=== PATIENT | female | born 1955 | race African-American/Black ===

== ENCOUNTER 2020-12-01 08:00 | Inpatient (IN) | payer OTHER ==
[2020-11-28 09:26] VITALS: BMI 33.6
[~2020-12-01 08:00] MED LIST: MIDAZOLAM HCL 2 MG/2 ML SINGLE DOSE VIAL ONE; PROPOFOL 20 ML ONE; ROCURONIUM BROMIDE 50 MG/5 ML SYRINGE ONE; fentaNYL CITRATE 250 MCG/5 ML VIAL ONE
[2020-12-02] MEDS ORDERED: GENTAMICIN SO4 80 MG/2 ML VIAL ONE (07:10)
[2020-12-02] MEDS ORDERED: LIDOCAINE 1%/EPI 1:100000 (20 ML MULTI DOSE VIAL) ONE (07:10)
[2020-12-02] MEDS ORDERED: THROMBIN (BOVINE) 20,000 UNIT VIAL TP ONE (07:10)
[2020-12-02] MEDS ORDERED: ACETAMINOPHEN INJECTION 100 ML IVPB ONE (07:15)
[2020-12-02] MEDS ORDERED: fentaNYL CITRATE 250 MCG/5 ML VIAL ONE (07:18)
[2020-12-02] MEDS ORDERED: PROPOFOL 20 ML ONE ×7 (07:18→08:00)
[2020-12-02] MEDS ORDERED: LIDOCAINE HCL/PF 2% SDV 5ML VIAL ONE (07:18)
[2020-12-02] MEDS ORDERED: DEXAMETHASONE SOD PHOSPHATE 4 MG/1 ML VIAL ONE ×2 (07:18→09:09)
[2020-12-02] MEDS ORDERED: SODIUM CHLORIDE 0.9% P/F 10 ML VIAL IJ ONE ×4 (07:18→10:38)
[2020-12-02] MEDS ORDERED: SUCCINYLCHOLINE CHLORIDE 200 MG/10 ML SYRINGE ONE (07:18)
[2020-12-02] MEDS ORDERED: ROCURONIUM BROMIDE 50 MG/5 ML SYRINGE ONE ×2 (07:18→09:16)
[2020-12-02] MEDS ORDERED: ceFAZolin SODIUM 1 GM VIAL ONE ×2 (07:18→13:47)
[2020-12-02] MEDS ORDERED: ONDANSETRON 4 MG/2 ML VIAL ONE ×2 (07:18→09:09)
[2020-12-02] MEDS ORDERED: MIDAZOLAM HCL 2 MG/2 ML SINGLE DOSE VIAL ONE ×3 (07:19→09:45)
[2020-12-02] MEDS ORDERED: SCOPOLAMINE HYDROBROMIDE 1 PATCH PATCH.TD72 ONE (07:55)
[2020-12-02] MEDS ORDERED: VANCOMYCIN 1,000 MG VIAL (RESTRICTED TO ID ONLY) ONE (07:58)
[2020-12-02] MEDS ORDERED: BACITRACIN 15 GM TUBE TOPICAL OINTMENT ONE (07:59)
[2020-12-02] MEDS ORDERED: VANCOMYCIN 1,000 MG VIAL (RESTRICTED TO ID ONLY) IVPB ONE (08:24)
[2020-12-02] MEDS ORDERED: ceFAZolin SODIUM 1 GM VIAL IVPB ONE (08:34)
[2020-12-02] MEDS ORDERED: BUPIVACAINE LIPOSOME/PF (EXPAREL) 266 MG/20 ML VIAL ONE (08:48)
[2020-12-02] MEDS ORDERED: HYDROmorphone HCl 2 MG/ML VIAL ONE ×2 (08:56→12:46)
[2020-12-02] MEDS ORDERED: THROMBIN (BOVINE) 5,000 UNIT VIAL TP ONE (08:59)
[2020-12-02] MEDS ORDERED: TRANEXAMIC ACID 1000 MG/10 ML VIAL ONE (09:32)
[2020-12-02] MEDS ORDERED: NEOSTIGMINE METHYLSULFATE 0.5 MG/1 ML - 10 ML MDV ONE (09:36)
[2020-12-02] MEDS ORDERED: GLYCOPYRROLATE 0.2 MG/1 ML VIAL ONE (09:37)
[2020-12-02] MEDS ORDERED: BUPIVACAINE LIPOSOME/PF (EXPAREL) 266 MG/20 ML VIAL NR ONE (09:48)
[2020-12-02] MEDS ORDERED: BUPIVACAINE HCL/PF 0.5% (5 MG/ML) 30 ML VIAL IJ ONE (09:48)
[2020-12-02] MEDS ORDERED: ePHEDrine SULFATE 50 MG/1 ML AMPULE ONE (10:09)
[2020-12-02] MEDS ORDERED: FLUMAZENIL 0.5 MG/5 ML VIAL ONE (11:31)
[2020-12-02] MEDS ORDERED: ONDANSETRON 4 MG/2 ML VIAL IVPUSH PRN ×2 (11:43→13:25)
[2020-12-02] MEDS ORDERED: HYDROmorphone HCl 2 MG/ML VIAL IVPUSH PRN (11:44)
[2020-12-02] MEDS ORDERED: LACTATED RINGERS SOLUTION 1,000 ML IV SCH (11:45)
[2020-12-02] MEDS: HYDROmorphone HCl 2 MG/ML VIAL IVPUSH PRN ×2 (12:50→13:55)
[2020-12-02] MEDS ORDERED: HYDROmorphone HCl 2 MG/ML VIAL SQ PRN (13:25)
[2020-12-02] MEDS ORDERED: oxyCODONE HCL 5 MG TABLET PO PRN ×2 (13:25)
[2020-12-02] MEDS: LACTATED RINGERS SOLUTION 1,000 ML IV SCH ×2 (13:55→22:48)
[2020-12-02] MEDS: CEFAZOLIN 2 GM/D5W 2 GM/50 ML ML IVPB SCH ×2 (15:25→20:42)
[2020-12-02] MEDS: CYCLOBENZAPRINE HCL 10 MG TABLET (FP) PO SCH ×2 (15:25→21:34)
[2020-12-02] MEDS: CARVEDILOL 12.5 MG TABLET (FP) PO SCH (21:33)
[2020-12-02] MEDS: diazePAM 5 MG TABLET PO SCH (21:33)
[2020-12-03] MEDS: CEFAZOLIN 2 GM/D5W 2 GM/50 ML ML IVPB SCH (01:31)
[2020-12-03] MEDS ORDERED: oxyCODONE HCL 5 MG TABLET PO PRN (03:25)
[2020-12-03] MEDS: ACETAMINOPHEN 1000 MG/100 ML VIAL (NON FORMULARY) IVPB PRN ×2 (03:43→12:46)
[2020-12-03] MEDS: CYCLOBENZAPRINE HCL 10 MG TABLET (FP) PO SCH ×3 (05:14→21:39)
[2020-12-03] MEDS: HYDROmorphone HCl 2 MG/ML VIAL SQ PRN (09:17)
[2020-12-03 09:33] LABS: HEMOGLOBIN 7.9 GM/dL (10.7-15.3); MCH 28.4 pg (25.7-33.7); PLATELET COUNT 325 10^3/uL (134-434); RDW 14.9 % (11.6-15.6); WHITE BLOOD COUNT 11.3 K/mm3 (4.0-10.0)
[2020-12-03 10:21] LABS: BLOOD UREA NITROGEN 16.6 mg/dL (7-18); CALCIUM 8.6 mg/dL (8.5-10.1)
[2020-12-03 10:22] LABS: MAGNESIUM 1.9 mg/dL (1.8-2.4)
[2020-12-03 10:29] LABS: PHOSPHOROUS 3.3 mg/dL (2.5-4.9)
[2020-12-03] MEDS: LISINOPRIL 20 MG TABLET PO SCH (12:39)
[2020-12-03] MEDS: CARVEDILOL 12.5 MG TABLET (FP) PO SCH ×2 (12:39→21:39)
[2020-12-03] MEDS ORDERED: PT OWN MED DRAWER 7, Y5N ONE (14:12)
[2020-12-03] MEDS: LACTATED RINGERS SOLUTION 1,000 ML IV SCH ×2 (15:13→23:47)
[2020-12-03] MEDS: oxyCODONE HCL 5 MG TABLET PO PRN ×2 (16:31→21:48)
[2020-12-03] MEDS ORDERED: diazePAM 5 MG TABLET PO ONE (18:15)
[2020-12-03] MEDS: amLODIPine BESYLATE 5 MG TABLET (FP) PO SCH (18:25)
[2020-12-03] MEDS: diazePAM 5 MG TABLET PO SCH (21:39)
[2020-12-03] MEDS: ROSUVASTATIN CA 20 MG TABLET (FP) PO SCH (21:48)
[2020-12-04] MEDS: oxyCODONE HCL 5 MG TABLET PO PRN ×2 (02:24→20:05)
[2020-12-04] MEDS: CYCLOBENZAPRINE HCL 10 MG TABLET (FP) PO SCH ×3 (06:05→21:00)
[2020-12-04 08:04] LABS: BASO % 1.3 % (0-2.0); EOS % 0.2 % (0-4.5); HEMATOCRIT 23.8 % (32.4-45.2); LYMPH % 26.2 % (8-40); MCHC 33.7 g/dl (32.0-36.0); MEAN CELL VOLUME 86.2 fl (80-96); MEAN PLT VOLUME 6.8 fl (7.5-11.1); NEUT % 62.3 % (42.8-82.8); PLATELET COUNT 334 10^3/uL (134-434); RBC 2.76 M/mm3 (3.60-5.2); RDW 14.8 % (11.6-15.6); WHITE BLOOD COUNT 8.2 K/mm3 (4.0-10.0)
[2020-12-04 08:25] LABS: CALCIUM 8.4 mg/dL (8.5-10.1)
[2020-12-04 08:26] LABS: BLOOD UREA NITROGEN 9.8 mg/dL (7-18); MAGNESIUM 1.9 mg/dL (1.8-2.4)
[2020-12-04 08:28] LABS: CREATININE 0.8 mg/dL (0.55-1.3)
[2020-12-04 08:29] LABS: PHOSPHOROUS 2.1 mg/dL (2.5-4.9)
[2020-12-04 08:30] LABS: BILIRUBIN,TOTAL 0.3 mg/dL (0.2-1); TOT PROT 6.5 g/dl (6.4-8.2)
[2020-12-04] MEDS: LISINOPRIL 20 MG TABLET PO SCH (11:19)
[2020-12-04] MEDS: CARVEDILOL 12.5 MG TABLET (FP) PO SCH ×2 (11:19→21:00)
[2020-12-04] MEDS: LACTATED RINGERS SOLUTION 1,000 ML IV SCH (13:39)
[2020-12-04] MEDS ORDERED: PT OWN MED DRAWER 7, Y5N ONE (15:30)
[2020-12-04] MEDS: amLODIPine BESYLATE 5 MG TABLET (FP) PO SCH (17:28)
[2020-12-04] MEDS: diazePAM 5 MG TABLET PO SCH (20:59)
[2020-12-04] MEDS: ROSUVASTATIN CA 20 MG TABLET (FP) PO SCH (21:00)
[2020-12-05] MEDS: CYCLOBENZAPRINE HCL 10 MG TABLET (FP) PO SCH ×2 (06:54→13:23)
[2020-12-05 08:39] LABS: BASO % 0.5 % (0-2.0); EOS % 1.2 % (0-4.5); HEMATOCRIT 26.7 % (32.4-45.2); HEMOGLOBIN 8.7 GM/dL (10.7-15.3); LYMPH % 34.3 % (8-40); MCH 28.1 pg (25.7-33.7); MCHC 32.8 g/dl (32.0-36.0); MEAN CELL VOLUME 85.9 fl (80-96); MEAN PLT VOLUME 7.1 fl (7.5-11.1); PLATELET COUNT 349 10^3/uL (134-434); RBC 3.11 M/mm3 (3.60-5.2); RDW 14.8 % (11.6-15.6); WHITE BLOOD COUNT 6.1 K/mm3 (4.0-10.0)
[2020-12-05 08:57] LABS: CALCIUM 8.6 mg/dL (8.5-10.1)
[2020-12-05 08:58] LABS: BLOOD UREA NITROGEN 12.3 mg/dL (7-18); MAGNESIUM 2.1 mg/dL (1.8-2.4)
[2020-12-05 09:01] LABS: CREATININE 0.9 mg/dL (0.55-1.3); PHOSPHOROUS 3.1 mg/dL (2.5-4.9)
[2020-12-05 09:02] LABS: BILIRUBIN,TOTAL 0.2 mg/dL (0.2-1)
[2020-12-05 09:03] LABS: TOT PROT 6.4 g/dl (6.4-8.2)
[2020-12-05] MEDS: HYDROmorphone HCl 2 MG/ML VIAL SQ PRN (09:23)
[2020-12-05] MEDS: LISINOPRIL 20 MG TABLET PO SCH (09:24)
[2020-12-05] MEDS: CARVEDILOL 12.5 MG TABLET (FP) PO SCH (09:24)
[2020-12-05] MEDS ORDERED: KETOROLAC TROMETHAMINE 15 MG/ML VIAL IVPUSH ONE (09:45)
[2020-12-05] MEDS ORDERED: KETOROLAC TROMETHAMINE 30 MG/1 ML VIAL IVPUSH ONE (15:35)
[2020-12-05] MEDS: PANTOPRAZOLE 40 MG TABLET PO SCH (16:00)
[2020-12-05] MEDS: ACETAMINOPHEN 500 MG TABLET (FP) PO SCH ×2 (16:00→20:02)
[2020-12-05] MEDS: amLODIPine BESYLATE 5 MG TABLET (FP) PO SCH (18:04)
[2020-12-05] MEDS ORDERED: SODIUM CHLORIDE 0.9% 500 ML INFUS.BAG IV ONE ×2 (18:09→21:10)
[2020-12-06] MEDS ORDERED: SODIUM CHLORIDE 0.9% 500 ML INFUS.BAG IV ONE ×2 (00:12→09:33)
[2020-12-06] MEDS: SODIUM CHLORIDE 0.9%/KCL 20 MEQ/1,000 ML INFUS.BAG IV SCH (02:00)
[2020-12-06] MEDS: CARVEDILOL 12.5 MG TABLET (FP) PO SCH ×2 (02:48→09:14)
[2020-12-06] MEDS: ROSUVASTATIN CA 20 MG TABLET (FP) PO SCH ×2 (02:49→21:29)
[2020-12-06] MEDS: CYCLOBENZAPRINE HCL 10 MG TABLET (FP) PO SCH ×4 (02:49→21:29)
[2020-12-06] MEDS: diazePAM 5 MG TABLET PO SCH ×2 (02:49→21:29)
[2020-12-06] MEDS: ACETAMINOPHEN 500 MG TABLET (FP) PO SCH ×4 (02:53→21:28)
[2020-12-06] MEDS: LISINOPRIL 20 MG TABLET PO SCH (09:14)
[2020-12-06 09:18] LABS: BASO % 0.9 % (0-2.0); EOS % 3.3 % (0-4.5); HEMATOCRIT 24.2 % (32.4-45.2); HEMOGLOBIN 7.9 GM/dL (10.7-15.3); LYMPH % 27.3 % (8-40); MCH 28.5 pg (25.7-33.7); MCHC 32.7 g/dl (32.0-36.0); MEAN CELL VOLUME 87.2 fl (80-96); MEAN PLT VOLUME 7.1 fl (7.5-11.1); MONO % 9.6 % (3.8-10.2); NEUT % 58.9 % (42.8-82.8); PLATELET COUNT 311 10^3/uL (134-434); RBC 2.78 M/mm3 (3.60-5.2); RDW 14.9 % (11.6-15.6)
[2020-12-06] MEDS: PANTOPRAZOLE 40 MG TABLET PO SCH (09:42)
[2020-12-06 09:46] LABS: CALCIUM 7.8 mg/dL (8.5-10.1)
[2020-12-06 09:49] LABS: ALBUMIN 2.6 g/dl (3.4-5.0)
[2020-12-06 09:50] LABS: BLOOD UREA NITROGEN 18.4 mg/dL (7-18); MAGNESIUM 2.1 mg/dL (1.8-2.4)
[2020-12-06 09:52] LABS: CREATININE 1.2 mg/dL (0.55-1.3)
[2020-12-06 09:54] LABS: BILIRUBIN,TOTAL 0.2 mg/dL (0.2-1); TOT PROT 5.8 g/dl (6.4-8.2)
[2020-12-06] MEDS ORDERED: BISACODYL 5 MG TABLET.DR (FP) PO ONE (16:00)
[2020-12-07] MEDS: SODIUM CHLORIDE 0.9%/KCL 20 MEQ/1,000 ML INFUS.BAG IV SCH ×4 (01:26→20:26)
[2020-12-07] MEDS: ACETAMINOPHEN 500 MG TABLET (FP) PO SCH ×4 (02:50→21:09)
[2020-12-07] MEDS: CYCLOBENZAPRINE HCL 10 MG TABLET (FP) PO SCH ×3 (06:07→21:08)
[2020-12-07 08:08] LABS: BASO % 0.5 % (0-2.0); EOS % 3.8 % (0-4.5); HEMATOCRIT 23.2 % (32.4-45.2); HEMOGLOBIN 7.5 GM/dL (10.7-15.3); MCH 28.2 pg (25.7-33.7); MCHC 32.3 g/dl (32.0-36.0); MEAN CELL VOLUME 87.1 fl (80-96); MEAN PLT VOLUME 7.2 fl (7.5-11.1); MONO % 8.6 % (3.8-10.2); NEUT % 53.1 % (42.8-82.8); PLATELET COUNT 334 10^3/uL (134-434); RBC 2.67 M/mm3 (3.60-5.2); RDW 15.1 % (11.6-15.6); WHITE BLOOD COUNT 4.5 K/mm3 (4.0-10.0)
[2020-12-07 08:29] LABS: ALBUMIN 2.6 g/dl (3.4-5.0)
[2020-12-07 08:30] LABS: BLOOD UREA NITROGEN 9.2 mg/dL (7-18)
[2020-12-07 08:33] LABS: CREATININE 0.8 mg/dL (0.55-1.3)
[2020-12-07 08:34] LABS: BILIRUBIN,TOTAL 0.4 mg/dL (0.2-1); TOT PROT 5.7 g/dl (6.4-8.2)
[2020-12-07] MEDS: PANTOPRAZOLE 40 MG TABLET PO SCH (09:16)
[2020-12-07] MEDS: ROSUVASTATIN CA 20 MG TABLET (FP) PO SCH (21:09)
[2020-12-07] MEDS: diazePAM 5 MG TABLET PO SCH (22:28)
[2020-12-08] MEDS: SODIUM CHLORIDE 0.9%/KCL 20 MEQ/1,000 ML INFUS.BAG IV SCH ×2 (02:51→04:45)
[2020-12-08] MEDS: ACETAMINOPHEN 500 MG TABLET (FP) PO SCH ×3 (02:52→14:02)
[2020-12-08] MEDS: CYCLOBENZAPRINE HCL 10 MG TABLET (FP) PO SCH ×2 (06:16→14:03)
[2020-12-08 08:14] LABS: HEMATOCRIT 25.1 % (32.4-45.2); HEMOGLOBIN 8.2 GM/dL (10.7-15.3); MCH 28.5 pg (25.7-33.7); MCHC 32.9 g/dl (32.0-36.0); MEAN CELL VOLUME 86.8 fl (80-96); MEAN PLT VOLUME 6.8 fl (7.5-11.1); PLATELET COUNT 368 10^3/uL (134-434); RBC 2.89 M/mm3 (3.60-5.2)
[2020-12-08] MEDS: PANTOPRAZOLE 40 MG TABLET PO SCH (09:05)
[2020-12-08 10:33] VITALS: BP 130/76; PULSE 87; TEMP 98.7
== END 2020-12-08 14:56 | disposition home or self-care (01) | DRG 321 ==
LOC: J2C 12-02 04:11 → J8W 12-02 14:55
PROVIDERS: ADMIT Orthopaedic Surgery Orthopaedic Surgery of the Spine; ATTEND Internal Medicine
PROC: 01N80ZZ Release Thoracic Nerve, Open Approach (ICD-10-PCS; 2020-12-02)
PROC: 00NW0ZZ Release Cervical Spinal Cord, Open Approach (ICD-10-PCS; 2020-12-02)
PROC: 0RG20AJ Fusion of 2 or more Cervical Vertebral Joints with Interbody Fusion Device, Posterior Approach, Anterior Column, Open Approach (ICD-10-PCS; 2020-12-02)
PROC: 0RG2071 Fusion of 2 or more Cervical Vertebral Joints with Autologous Tissue Substitute, Posterior Approach, Posterior Column, Open Approach (ICD-10-PCS; 2020-12-02)
PROC: 0RG40AJ Fusion of Cervicothoracic Vertebral Joint with Interbody Fusion Device, Posterior Approach, Anterior Column, Open Approach (ICD-10-PCS; 2020-12-02)
PROC: 0RG4071 Fusion of Cervicothoracic Vertebral Joint with Autologous Tissue Substitute, Posterior Approach, Posterior Column, Open Approach (ICD-10-PCS; 2020-12-02)
PROC: 0RT30ZZ Resection of Cervical Vertebral Disc, Open Approach (ICD-10-PCS; 2020-12-02)
PROC: 0RT50ZZ Resection of Cervicothoracic Vertebral Disc, Open Approach (ICD-10-PCS; 2020-12-02)
PROC: 0PS304Z Reposition Cervical Vertebra with Internal Fixation Device, Open Approach (ICD-10-PCS; 2020-12-02)
PROC: 0PS404Z Reposition Thoracic Vertebra with Internal Fixation Device, Open Approach (ICD-10-PCS; 2020-12-02)
PROC: B01BZZZ Fluoroscopy of Spinal Cord (ICD-10-PCS; 2020-12-02)
PROC: 0JR707Z Replacement of Back Subcutaneous Tissue and Fascia with Autologous Tissue Substitute, Open Approach (ICD-10-PCS; 2020-12-02)
PROC: 01N10ZZ Release Cervical Nerve, Open Approach (ICD-10-PCS; principal; 2020-12-02 08:00)
DX: M47.13 Other spondylosis with myelopathy, cervicothoracic region (principal); M47.23 Other spondylosis with radiculopathy, cervicothoracic region; I25.10 Atherosclerotic heart disease of native coronary artery without angina pectoris; E78.5 Hyperlipidemia, unspecified; I10 Essential (primary) hypertension; F41.9 Anxiety disorder, unspecified; R26.81 Unsteadiness on feet; M40.203 Unspecified kyphosis, cervicothoracic region
CPT/HCPCS: 36415; 72050-TC-FY; 72125-TC; 76000-TC-FY; 80048; 80053; 83735; 84100; 85025; 85027; 86850; 86900; 86901; 94760; 97116-GP; 97161-GP; C9803; J0131; U0003; U0005